=== PATIENT | female | born 1990 | race Caucasian/White ===

== ENCOUNTER 2023-07-23 12:30 | Outpatient (CLI) | payer BC, SELFPAY | END 2023-07-23 12:31 | disposition home or self-care (01) | PROVIDERS: PCP Physician Assistant; Visit Provider Obstetrics & Gynecology | DX: O20.9 Hemorrhage in early pregnancy, unspecified (principal) | CPT/HCPCS: 84702; 86850; 86900; 86901 ==

== ENCOUNTER 2023-07-25 11:39 | Outpatient (CLI) | payer BC, SELFPAY ==
[2023-07-25 12:37] LABS: HCG Quantitative* 73.34 mIU/mL
== END 2023-07-25 11:40 | disposition home or self-care (01) ==
LOC: LAB 11:40
PROVIDERS: PCP Physician Assistant; Visit Provider Obstetrics & Gynecology
DX: O20.9 Hemorrhage in early pregnancy, unspecified (principal)
CPT/HCPCS: 36415; 84702

== ENCOUNTER 2023-07-31 15:50 | Outpatient (CLI) | payer BC, SELFPAY | END 2023-07-31 15:51 | disposition home or self-care (01) | LOC: NFLDREF 08-03 10:17 | PROVIDERS: PCP Physician Assistant; Referring Provider Physician Assistant; Visit Provider Obstetrics & Gynecology | DX: O03.9 Complete or unspecified spontaneous abortion without complication (principal) | CPT/HCPCS: 84702 ==

== ENCOUNTER 2024-06-23 12:00 | Outpatient (CLI) | payer BC, SELFPAY ==
--- NOTE | 2024-06-23 12:15 | CRLHL7_ITS ---
For Patients: As a result of the Cures Act, medical imaging exams and procedure reports are released immediately into your electronic medical record. You may view this report before your referring provider. If you have questions, please contact your health care provider. INDICATION: First trimester scan, establish dates. COMPARISON: None. TECHNIQUE: Real-time gallagher-scale imaging of the pelvis was performed. FINDINGS: Sonographic imaging demonstrates a single living intrauterine gestation. The embryo demonstrates a regular cardiac rate measuring 167 beats per minute. The embryo`s crown-rump length measurement of 1.6 cm corresponds to a gestational age of 8 weeks 0 days with a sonographic due date of 02/02/2025. There is a normal-appearing yolk sac. There are no gross abnormalities noted within the embryo at this early state of development. The gestational sac has a normal appearance. There is a 2.3 x 1.0 x 1.8 cm perigestational hemorrhage. The amount of fluid within the sac appears appropriate for gestational age. The cervix is closed. The myometrium appears normal. The ovaries are of normal size. Corpus luteal cyst left ovary. There are no suspicious fluid collections noted in the cul-de-sac. IMPRESSION: Single living intrauterine with sonographic gestational age 8 weeks 0 days and a sonographic due date 02/02/2025. Right inferior subchorionic hemorrhage measures 2.3 x 1.0 x 1.8 cm. Dictated by Rg Saldivar MD @ 06/23/2024 4:15:19 PM (Electronically Signed)
== END 2024-06-23 12:01 | disposition home or self-care (01) ==
PROVIDERS: Visit Provider Physician Assistant
DX: Z34.91 Encounter for supervision of normal pregnancy, unspecified, first trimester (principal); O20.9 Hemorrhage in early pregnancy, unspecified; Z3A.08 8 weeks gestation of pregnancy
CPT/HCPCS: 76817; 86592; 86703; 86704; 86706; 86762; 86787; 86803; 86850; 86900; 86901; 87086; 87340; 87491; 87591; 87624; 88141; 88142

== ENCOUNTER 2024-09-13 09:47 | Outpatient (CLI) | payer BC, SELFPAY ==
--- NOTE | 2024-09-13 10:00 | CRLHL7_ITS ---
For Patients: As a result of the Century Cures Act, medical imaging exams and procedure reports are released immediately into your electronic medical record. You may view this report before your referring provider. If you have questions, please contact your health care provider. INDICATION: Evaluate anatomy. COMPARISON: 06/23/2024 TECHNIQUE: Real time gallagher scale imaging of the fetus was performed as well as color Doppler analysis of the umbilical vessels. FINDINGS: Sonographic imaging demonstrates a single living intrauterine gestation. Fetus demonstrates a regular cardiac rate of 149 beats per minute. Fetus has a variable position. The placenta lies anteriorly without evidence of placenta previa. Edge of the placenta is located 3.1 cm from the internal cervical os. Amniotic fluid volume appears normal. Single deepest vertical pocket: 4.3 cm. The cervix is closed and measures 6.0 cm in length. The composite ultrasound gestational age is calculated at 19 weeks 5 days with an estimated sonographic due date of 02/02/2025. The estimated weight is 315 grams which lies at the 17th %. The following biometric measurements were obtained: Biparietal diameter: 4.5 cm/19 weeks 4 days 18th% Head circumference: 16.8 cm/19 weeks 3 days 8th% Abdominal circumference: 14.7 cm/20 weeks 0 days 29th% Femur length: 3.1 cm/19 weeks 5 days 20th% The HC/AC ratio measures: 1.14 range (1.08-1.26) On anatomic survey, there is a normal appearance of the cerebral ventricles, cavum septi pellucidi, cisterna magna and cerebellum. The profile appears normal. Incomplete visualization of the nose and the lips. The cervical, thoracic and lumbar spine are well visualized and appear normal. There is incomplete visualization of the four-chamber heart and outflow tracts. The diaphragm and stomach appear normal. The kidneys and bladder also appear normal. There is a normal three-vessel cord and cord insertion site. The four extremities appear normal. IMPRESSION: Concordance of clinical and sonographic dating. Incomplete visualization of the heart due to position. Also incomplete visualization of the nose and lips. Remainder of the anatomic survey normal. Short-term follow-up recommended. Dictated by Rg Saldivar MD @ 09/13/2024 3:23:19 PM (Electronically Signed)
== END 2024-09-13 09:48 | disposition home or self-care (01) ==
LOC: US 09:48
PROVIDERS: Visit Provider Obstetrics & Gynecology
DX: Z34.92 Encounter for supervision of normal pregnancy, unspecified, second trimester (principal); Z3A.19 19 weeks gestation of pregnancy
CPT/HCPCS: 76805

== ENCOUNTER 2024-10-10 10:00 | Outpatient (CLI) | payer BC, SELFPAY ==
--- NOTE | 2024-10-10 10:15 | CRLHL7_ITS ---
For Patients: As a result of the Century Cures Act, medical imaging exams and procedure reports are released immediately into your electronic medical record. You may view this report before your referring provider. If you have questions, please contact your health care provider. INDICATION: Follow-up heart, nose and lips COMPARISON: 09/13/2024 TECHNIQUE: Real time gallagher scale imaging of the fetus was performed as well as color Doppler imaging of the heart. FINDINGS: A ventricular septal defect is suspected, confirmed on the LVOT image and Doppler images. Outflow tracts appear otherwise unremarkable. Normal nose and lips. heart rate 142 beats per minute. Vertex position. Placenta anterior. Amniotic fluid 4.9 cm single deepest pocket. IMPRESSION: Concern for VSD. Maternal medicine consult recommended. Dictated by Rg Saldivar MD @ 10/10/2024 11:26:50 AM (Electronically Signed)
== END 2024-10-10 10:01 | disposition home or self-care (01) ==
LOC: US 10:01
PROVIDERS: Visit Provider Obstetrics & Gynecology
DX: O36.8390 Maternal care for abnormalities of the fetal heart rate or rhythm, unspecified trimester, not applicable or unspecified (principal); O35.AXX0 Maternal care for other (suspected) fetal abnormality and damage, fetal facial anomalies, not applicable or unspecified
CPT/HCPCS: 76816

== ENCOUNTER 2024-11-10 15:00 | Outpatient (CLI) | payer BC, SELFPAY | END 2024-11-10 15:01 | disposition home or self-care (01) | LOC: NFLDREF 11-18 11:34 | PROVIDERS: Visit Provider Obstetrics & Gynecology | DX: Z34.93 Encounter for supervision of normal pregnancy, unspecified, third trimester (principal); Z3A.28 28 weeks gestation of pregnancy | CPT/HCPCS: 86592 ==

== ENCOUNTER 2024-11-14 08:40 | Outpatient (CLI) | payer BC, SELFPAY | END 2024-11-14 08:41 | disposition home or self-care (01) | LOC: FRMREF 08:41 | PROVIDERS: Visit Provider Registered Nurse | DX: R73.09 Other abnormal glucose (principal) | CPT/HCPCS: 82951; 82952 ==

== ENCOUNTER 2024-11-25 10:06 | Outpatient (CLI) | payer BC, SELFPAY ==
--- NOTE | 2024-11-25 10:15 | CRLHL7_ITS ---
For Patients: As a result of the Century Cures Act, medical imaging exams and procedure reports are released immediately into your electronic medical record. You may view this report before your referring provider. If you have questions, please contact your health care provider. LIMITED OBSTETRICAL ULTRASOUND FOLLOWUP, 11/25/2024 LMP: 04/23/2024. NORAH by LMP: 01/28/2025. GA: 30 w, 6 d. FETUSES: Single. INDICATION: Growth (EFW 15% on 11/02/2024 w/MFM) TECHNIQUE: Real time gallagher scale imaging of the fetus was performed. Transabdominal. Position: Vertex. Cervix: Visualized. Measurement: 3.7 cm. Placenta/cord: Anterior. Technique: Transabdominal. Amniotic Fluid: 14.3 cm JACQUI. 4.6 cm SDP (N: Greater than 2 x 1 cm). Heart Rate: 147 bpm. BIOMETRY BPD: 7.6 cm. 30 w, 3 d, 25.3 percent. HC: 27.3 cm. 29 w, 5 d, <3 percent. AC: 26.8 cm. 30 w, 6 d, 47.7 percent. FL: 5.7 cm. 30 w, 0 d, 14.4 percent. FL/AC ratio: 21.3 percent. HC/AC ratio: 1.0. EFW: 1575 g. Weight: 3 lbs, 8 oz. Age by this US: 30 weeks 2 days. NORAH by this US: 02/01/2025. Percentile by NORAH: 24.8%. IMPRESSION: 1. Sonographic gestational age 30 weeks 2 days and sonographic due date 02/01/2025. Sonographic age is four days behind the clinical age. 2. Estimated weight 25th percentile. Abdominal circumference 48th percentile. Head circumference less than 3rd percentile. Rg Saldivar M.D. Diagnostic Radiologist [email or web address] DW/Dictated by: Rg Saldivar MD @ 11/26/2024 7:00:00 AM (Electronically Signed)
== END 2024-11-25 10:07 | disposition home or self-care (01) ==
LOC: US 10:06
PROVIDERS: Visit Provider Obstetrics & Gynecology
DX: Z34.93 Encounter for supervision of normal pregnancy, unspecified, third trimester (principal); Z3A.30 30 weeks gestation of pregnancy
CPT/HCPCS: 76816

== ENCOUNTER 2025-01-04 09:42 | Outpatient (CLI) | payer BC, SELFPAY ==
[2025-01-05 13:09] LABS: Strep B DNA Probe Negative (Negative)
[2025-01-05 14:29] LABS: Strep B Susceptibility Needed? No
== END 2025-01-04 09:43 | disposition home or self-care (01) ==
LOC: FRMREF 09:42
PROVIDERS: Visit Provider Obstetrics & Gynecology
DX: Z34.93 Encounter for supervision of normal pregnancy, unspecified, third trimester (principal); Z3A.36 36 weeks gestation of pregnancy
CPT/HCPCS: 87081; 87653

== ENCOUNTER 2025-02-03 06:25 | Inpatient (IN) | payer BC, SELFPAY ==
[2025-02-03] VITALS (102 sets, daily range): BP systolic 76–148; BP diastolic 37–86; PULSE 75–125; RESP 16–18; TEMP 36.6–36.9; O2SAT 94–100; BMI 35.3
[2025-02-03] MEDS: LACTATED RINGERS 1000 ML 1,000 ML 900 ML IV (06:25)
[2025-02-03 06:36] LABS: Basophils Percent Auto 0.1 % (0.0-3.0); Hematocrit 37.2 % (33.0-51.0); Hemoglobin* 12.5 gm/dL (12.0-16.0); Immature Granulocytes Pct Auto 1.8 %; Lymphocytes Percent Auto 16.4 % (20-44); Mean Corpuscular HGB Conc 34 gm/dL (32-36); Mean Corpuscular Hemoglobin 29 pg (26-34); Mean Corpuscular Volume 85 fL (80-100); Monocytes Percent Auto 5.4 % (0.0-11.0); Neutrophils Percent Auto 75.3 % (42.0-72.0); Platelet Count* 182 K/uL (140-440); RDW Coefficient of Variation % 14.4 % (11.5-15.5); Red Blood Count 4.37 m/uL (4.00-5.20); Slide Review Reflex No; White Blood Count* 11.03 K/uL (4.50-11.00)
[2025-02-03] MEDS: ROPIVACAINE 0.2% 100 ml 100 ML 11 MG EPIDURAL (07:20)
[2025-02-03] MEDS: LIDOCAINE 2% (PF) 5 ML VIAL EPIDURAL (07:21)
[2025-02-03] MEDS: PHENYLEPHRINE 100 MCG/ML SYRINGE IVP ×4 (07:28→08:41)
[2025-02-03] MEDS: fentaNYL 100 MCG/2 ML inj EPIDURAL (07:30)
[2025-02-03] MEDS: LACTATED RINGERS 1000 ML 1,000 ML 125 ML IV ×2 (07:33→09:56)
--- NOTE | 2025-02-03 07:35 | P.ANBPRC_ITS ---
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 Marital status: Significant other. Adventist/cultural needs: no. Chemical or radiation exposure: no. Pre- tobacco use: no. Pre- alcohol use: 1-2 per week. Current tobacco use: no. Current alcohol use: no. Recreational drug use: no. Dietary restrictions: no. Blood transfusion acceptable in an emergency: yes. PSYCHOSOCIAL HISTORY: History of depression or currently depressed: Denies. Current or past physical, emotional, or sexual mistreatment: Denies. Problems that will make it hard to make it to appointments: No. What is your current living situation?: I presently have a place to live Problems where you live: mold In the past 12 months, utilities in danger of being shut off: no In past 12 months, lack of transportation kept you from medical appts, meetings, work, or getting things needed for daily living: no In the past 12 mos, have been you worried that your food would run out before you had money to buy more?: never true In the past 12 mos, the food you bought just didn't last and you didn't have money to buy more?: never true Smoking Status: Never smoker How often does anyone, including family, friends and others, physically hurt you : never How often does anyone, including family, friends and others, insult or talk down to you: never How often does anyone, including family, friends and others, threaten you with harm: never How often does anyone, including family, friends and others, scream or curse at you: rarely Health Related Social Needs: Inadequate housing (Z59.1) and Other personal risk factors, not elsewhere classified (Z91.89) Meds Home Medications and Allergies Home Medications ?Medication ?Instructions ?Recorded ?Confirmed ?Type docosahexaenoic acid 200 mg mg PO 06/23/24 02/01/25 History capsule ( DHA) Allergies Allergy/AdvReac Type Severity Reaction Status Date / Time avocado Allergy Intermediate Abdominal Verified 02/03/25 06:17 Pain banana Allergy Intermediate Abdominal Verified 02/03/25 06:17 Pain Results Labs Labs: Laboratory Results - last 24 hr 02/03/25 06:25 WBC 11.03 H RBC 4.37 Hgb 12.5 Hct 37.2 MCV 85 MCH 29 MCHC 34 RDW Coeff of Juan Carlos 14.4 Plt Count 182 Neut % (Auto) 75.3 H Lymph % (Auto) 16.4 L Karnes % (Auto) 5.4 Eos % (Auto) 1.0 Baso % (Auto) 0.1 Neut # (Auto) 8.30 H Lymph # (Auto) 1.80 Karnes # (Auto) 0.60 Eos # (Auto) 0.10 Baso # (Auto) 0.00 Abs Immat Gran (auto) 0.20 Imm/Tot Granulo (auto) 1.8 Vital Signs Vital Signs: Last Vital Signs Temp 97.9 F 02/03/25 06:33 Pulse 105 H 02/03/25 07:35 BP 99/54 L 02/03/25 07:35 Pulse Ox 99 02/03/25 07:34 Weight: 84.776 kg Height: 154.94 cm Anesthesia Procedures Epidural Insertion Patient Location: OB Start Time: 06:50 Stop Time: 07:50 Start Date: 02/03/25 Stop Date: 02/03/25 Reason for Block: procedure for pain Patient Position: sitting Performed By: Margot Carrera Preanesthetic Checklist: IV checked, risks and benefits discussed, surgical consent, monitors and equipment checked, pre-op evaluation, timeout performed and anesthesia consent Prep: chlorhexidine gluconate Monitoring: blood pressure monitoring, continuous pulse oximetry and heart rate Approach: midline Vertebral Space: lumbar (1-5) Epidural Technique: CORBY saline Needle Type: Tuohy needle Injection Technique: continuous catheter (continuous catheter) Needle gauge: 17 Needle Length (cm): 10 cm Needle Insertion Depth (cm): 8 Catheter Gauge: 19 Catheter Type: multi-orifice Catheter at skin depth (cm): 15 Test Dose Result: negative and lidocaine 1.5% with epinephrine 1 to 200,000
[2025-02-03] MEDS: ePHEDrine sulfate 5 MG/ML inj 10 MG IVP ×2 (07:42→08:15)
--- NOTE | 2025-02-03 08:14 | P.LDBA_ITS ---
Subjective History of Present Illness Time Seen by Provider: 08:14 Date Seen: 02/03/25 Narrative: Camila is being admitted to Labor and Delivery for spontaneous onset of labor. Her contractions did are approximately 3:00 a.m. and became much more intense and every 2 minutes by 6:00 a.m. she received an epidural for labor analgesia soon after admission this morning.. She is a 34 year old at 40 and 6/7 weeks gestation. Her full history and physical was dictated by Dr. Shafer on 01/11/2025. Please see this for details. Verbal consent obtained to perform artificial rupture of membranes. The patient and her spouse no concerns or questions. They are very excited about having the baby today. She is comfortable with an epidural and has been progressing quickly through labor. Specific Issues/Plans Partner: Tyrone. Baby: Girl! H&P: by [facility] on 01/11/25. #Elevated 1hr GTT 3 hour 10/01 elevated: no GDM #Imaging concerns for a possible VSD, MFM evaluation confirmed normal anatomy. [place] low risk, girl! Imaging: * 09/13/24: FAS normal, except suboptimal views of heart, nose/lips due to position and activity. EFW 17%. Anterior placenta. * 10/11/2024 MFM: EFW 21%, AC 43%, MVP 6.4 cm, structures not well visualized: Aortic arch view, ductal arch view. Follow-up ultrasound scheduled with [facility] in three weeks. * 11/02/24 MFM: EFW 15%, AC 32%, MVP 8.3 cm, JACQUI 22.4 cm, normal anatomy. Rec: repeat growth US in [place] with primary clinic in 4 weeks. Order entered. * Follow-up ultrasound: 11/25/2024. EFW 3 lb 8 oz (25%), BPD 25%, HC <3%, AC 48%, FL 14%, SDP 6.3 cm, vertex. Vaccinations: COVID: Declines Flu: 06/23/2024 Tdap: 11/25/2024 GBS: Negative. 32 week mental health: 12/09/24. PHQ-9: 3. KLAUS-7: 4. Last pap: 06/23/2024 WNL, HPV(-) OB - Problem Based A/P Additional Plan (1) Spontaneous onset of labor: Status: Acute Plan 1. Admit to the center. 2. Patient has an epidural for labor analgesia. 3. GBS: Negative. 4. Blood type: A positive. 5. Expect vaginal delivery. OB Exam Physical Exam Vital signs: Temp Pulse BP Pulse Ox 97.9 F 94 90/51 L 99 02/03/25 06:33 02/03/25 08:13 02/03/25 08:13 02/03/25 08:09 Narrative: GENERAL APPEARANCE: Pleasant, , well-groomed woman in no acute distress. VITAL SIGNS: as noted in nursing notes HEAD: Normocephalic, atraumatic. THYROID: no masses, nodularity, tenderness or enlargement. LUNGS: Clear to auscultation bilaterally without wheezes, rales or rhonchi. HEART: Regular rate and rhythm with normal S1 and S2. No gallop, rub or murmur. ABDOMEN: Gravid. Soft, nontender, nondistended, with normal bowels sounds throughout. EFM: Baseline 140 bpm. Variability: Moderate. Accelerations: Present. Decelerations: Intermittent early decelerations AROM. Reactive. Category 2 TOCO: Q2-3 minutes. PRESENTATION: Vertex by Kristofer's maneuvers. SVE: 8 cm/ 100 %/ 0/soft/anterior. AROM: Clear fluid EXTREMITIES: No cyanosis, clubbing, or edema. No varicosities. NEUROLOGIC: Normal gait and balance. Normal deep tendon reflexes at bilateral patella 2+/2, equal without clonus. PSYCHIATRIC: alert and oriented x3. Normal speech pattern, eye contact and affect. SKIN: Warm, dry, and well perfused. Good turgor. No lesions, nodules or rashes.
[2025-02-03] MEDS: LACTATED RINGERS 1000 ML 1,000 ML 925 ML IV (08:45)
[2025-02-03] MEDS: ONDANSETRON 2 MG/ML inj 4 MG IV (11:39)
--- NOTE | 2025-02-03 13:54 | PM.OBPNL ---
Subjective Time Seen by Provider: 13:54 Date Seen: 02/03/25 Narrative: Subjective: Feeling pressure with contractions but not uncomfortable. Been pushing for almost 3 hours in multiple positions. Nursing reports no descent of the vertex. Not on Pitocin. Vital signs: Per electronic medical record. EFM: Baseline 140 ppm, positive accelerations, sporadic variable decelerations with contractions, moderate variability, reactive. Category 2. Becenti: Contractions every 2 minutes. SVE: Completely cm/100 %/0 to +1 with significant caput. Cranial sutures are not palpable secondary to caput Assessment: 34-year-old 1 para 0 at 40 weeks 6 days gestation arrest of descent Plan: 1. Due to arrest of descent and suspected OT position a primary low-transverse was recommended. 2. Consent form reviewed and signed for primary low-transverse Objective Vital Signs: Last Vital Signs Temp 98.1 F 02/03/25 12:55 Pulse 101 H 02/03/25 13:39 BP 118/69 02/03/25 13:39 Pulse Ox 94 02/03/25 09:14
[2025-02-03] MEDS: AZITHROMYCIN 500 MG in 0.9 % SODIUM CHLORIDE 250 ml 250 ML 255 MG IVPB (14:04)
--- NOTE | 2025-02-03 14:07 | PM.OBPRCCS ---
OB Delivery Proc Additional Procedures Tubal Ligation at the time of : No Procedure Date of procedure: 02/03/25 Pre-op diagnosis: Arrest of descent Post-op diagnosis: same Procedure Done: Global Will [facility] bill your pro fee for this procedure?: Yes Blood Loss Measurement Type: QBL (1521 mL) IV fluids (mL): 1,400 Urine Output (mL): 300 Surgeon: Elizabeth Billingsley MD Commercial Designer: Not applicable Anesthesia Type: Epidural and TAP Block Procedure Description: Preoperative diagnosis: 34-year-old 2 para 0010 at 40 and 6/7 weeks, arrest of descent Postoperative diagnosis: Same, ROT position, hemorrhage Procedure: Primary low-transverse section Anesthesia: Epidural, TAPS Block Surgeon: Elizabeth Shafer MD Commercial Designer: Not applicable Quantitative blood loss: 1521 mL IV Fluid: 1400 mL Urine output: 300 mL, clear urine at the end of the procedure Specimen: none Drain(s): Reyes to gravity Findings: A live female infant was delivered from the ROT position at 3:03 p.m.. Apgars were 9 at 1 min and 9 at 5 min, respectively. Infant weight: 8 lb 6 oz. Nuchal cord(s): No. The placenta was delivered spontaneously and complete at 3:05 p.m.. Amniotic fluid: Clear. Normal uterus, fallopian tubes and ovaries were noted. Other findings: Extension of the left uterine apex into the uterine blood vessels. Procedure: Camila was taken to the OR where epidural anesthetic was found be adequate. A Reyes catheter was in place on arrival to the operating room. The patient was then placed in the dorsal supine position with a leftward tilt. She was then prepped and draped in a normal sterile manner. A Pfannenstiel skin incision was made and carried through sharply to the underlying layer of fascia. Fascia was incised in the midline and this incision carried laterally with Sheehan scissors. The superior aspect of fascial incision was grasped with Julia clamps, tented up, and the rectus muscles dissected off with a combination of blunt and sharp dissection. The inferior aspect of the fascial incision was then tented up with Julia clamps and dissected off the underlying rectus muscles. There were 3 veins in the midline of the fascia and rectus muscles that did not respond to bipolar cautery both 3 figure of 8 sutures using 3-0 Vicryl were placed to obtain hemostasis. The rectus muscles were in the midline. The peritoneum was entered bluntly. This opening was extended bluntly. An Willie-O self-retaining retractor was placed. A bladder flap was not created. Uterus was incised in a low transverse manner in the midline. This incision carried laterally with blunt pressure on the inferior and superior aspects of the uterine incision. The amniotic sac was ruptured. The 's head and body was delivered atraumatically. The 's vertex was somewhat impacted in the pelvis but was able to lift the 's head to the incision after approximately 1 minute. The was shown to the patient and her support person and then handed to waiting pediatric and nursing staff. The cord was clamped and cut after a 30 second delay. The placenta was delivered spontaneously. The uterus was cleared of clots and debris. The uterine incision was re-approximated with the uterus in vivo. The 1st layer using 0-Vicryl in a running, locked manner. Prior to completing the 1st layer there was noted to be an extension of the left uterine apex that extended into the uterine vessels with arterial bleeding. Three sutures of 0 Vicryl in a [id number] manner were placed and excellent hemostasis was noted. The 1st uterine layer was then completed with the 0-Vicryl suture in a running manner. The 2nd layer using 0-Monocryl in a running, vertical, imbricating layer. Additional sutures needed for hemostasis: Yes: 3 figure of 8 sutures using 2-0 chromic. Yun was then applied to the uterine incision. Excellent hemostasis was verified. The Willie retractor was removed. The rectus muscles were not reapproximated. The rectus muscles were then closely inspected to verify hemostasis. Hemostasis was obtained with bipolar cautery. The fascia was then re-approximated using 0-Maxon loop in a running manner. The subcutaneous tissue was then irrigated with saline and hemostasis obtained with bipolar cautery. The subcutaneous tissue was re-approximated using 3-0 plain gut in a running manner. The skin was reapproximated using 4-0 Monocryl in a running subcuticular manner. Steri-Strips and a pressure dressing were applied. The patient tolerated this procedure well. Sponge, lap and instrument counts were correct x2 active to the procedure. Patient was taken to the recovery area in stable condition. The patient received 2 g of IV Ancef and 500 mg IV azithromycin prior to skin incision. Pathology: none sent Surgery Debrief Performed: Yes Condition: stable Disposition: floor
--- NOTE | 2025-02-03 16:15 | SUR.OPER ---
Pressure dressing applied, steri strips, 4X4, abd pads and tape.
--- NOTE | 2025-02-03 16:22 | P.ANES_ITS ---
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
--- NOTE | 2025-02-03 16:22 | W.ANESCHARGE ---
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
--- NOTE | 2025-02-03 16:23 | P.NB_ITS ---
Nerve Block Nerve Block Time Seen by Provider: 16:05 Date Seen: 02/03/25 Type of block requested by surgeon for post-operative analgesia: TAP Side: bilateral Time out performed: Yes Verification of patient name: Yes Verification of date of : Yes Name of person performing procedure: Rolando Brannon Continuous monitoring Was continuous monitoring of O2 sat, B/P, acrobatic rigger, recorded every 15 minutes?: Yes Procedure Ultrasound guided. Images saved: Yes Medications given in 5ml increments after negative aspiration: Marcaine %: 0.25 mL: 30 Needle gauge: 20 and Exparel mL: 10 Needle gauge: 20 Patient tolerated procedure well: Yes Block Charges Block Charge (with Pro Fee): TAP Unilateral Use of Ultrasound Machine for Block: Yes- US Guidance/pain block
[2025-02-03] MEDS: ACETAMINOPHEN 500 MG TABLET 1000 MG PO (16:41)
[2025-02-03] MEDS: KETOROLAC 30 MG/ML inj IVP (21:54)
[2025-02-03] MEDS: DOCUSATE SODIUM 100 MG CAPSULE PO (21:55)
[2025-02-04] VITALS (25 sets, daily range): BP systolic 105–127; BP diastolic 65–82; PULSE 91–116; RESP 16–20; TEMP 36.6–36.9; O2SAT 96–98
[2025-02-04] MEDS: ACETAMINOPHEN 500 MG TABLET 1000 MG PO ×2 (01:10→20:26)
[2025-02-04] MEDS: KETOROLAC 30 MG/ML inj IVP ×4 (03:37→22:12)
[2025-02-04 04:39] LABS: Basophils Percent Auto 0.2 % (0.0-3.0); Eosinophils Percent Auto 0.3 % (0.0-7.0); Hematocrit 29.2 % (33.0-51.0); Hemoglobin* 9.6 gm/dL (12.0-16.0); Immature Granulocytes Pct Auto 0.5 %; Lymphocytes Percent Auto 12.6 % (20-44); Mean Corpuscular HGB Conc 33 gm/dL (32-36); Mean Corpuscular Hemoglobin 28 pg (26-34); Mean Corpuscular Volume 86 fL (80-100); Monocytes Percent Auto 5.5 % (0.0-11.0); Neutrophils Percent Auto 80.9 % (42.0-72.0); Platelet Count* 150 K/uL (140-440); RDW Coefficient of Variation % 14.5 % (11.5-15.5); White Blood Count* 13.02 K/uL (4.50-11.00)
[2025-02-04 04:42] LABS: Slide Review Reflex No
--- NOTE | 2025-02-04 04:46 | CRLHL7_ITS ---
For Patients: As a result of the Century Cures Act, medical imaging exams and procedure reports are released immediately into your electronic medical record. You may view this report before your referring provider. If you have questions, please contact your health care provider. INDICATION: Right upper quadrant pain, just had a . COMPARISON: None. TECHNIQUE: CT of the abdomen and pelvis with intravenous contrast. Multiplanar axial, coronal, and sagittal reformats were reconstructed. Contrast: 91 mL Isovue 370. FINDINGS: Lung bases: Mild basilar atelectasis. Liver: Liver size is normal. Normal homogeneous hepatic enhancement. Normal patent liver vasculature. Gallbladder and bile ducts: Gallbladder is distended. No gallbladder wall thickening or pericholecystic edema. No bile duct dilation. Pancreas: Normal. Spleen: Normal. Adrenal glands: Normal. Kidneys: Normal parenchyma. No cyst or solid mass. No calculi. No urinary tract dilation. Urinary bladder: Decompressed with a Reyes catheter. Pelvis: Appearance of the uterus consistent with a recent section. Small amount of gas and fluid within the endometrial cavity. The section site in the anterior inferior uterus is about as expected without dehiscence or hematoma. Expected recent appearance of the myometrium with prominent myometrial vascularity in general enlargement of the uterus. Small amount of fluid in the endocervical and endovaginal canal. Vessels: Expected recent appearance of both ovarian veins. No ovarian vein thrombosis. No pelvic DVT. Bowel: No dilated or inflamed bowel. Normal appendix. Moderate right-sided stool burden. Lymph nodes: No adenopathy. Peritoneum: No ascites. Trace free air consistent with recent operation. Abdominal wall: Postoperative lower abdominal incision. No dehiscence or discrete hematoma or other collection. Abdominal wall subcutaneous emphysema is consistent with a recent operation. Mild diastasis. Bones: No fractures. No focal worrisome bone lesions. IMPRESSION: Expected appearance of the abdomen and pelvis after a recent section. No acute appearing findings. Please note that all CT scans at this facility use dose modulation, iterative reconstruction, and/or weight-based dosing when appropriate to reduce radiation dose to as low as reasonably achievable. Dictated by Kassandra Hernandez MD @ 02/04/2025 5:16:47 AM (Electronically Signed)
[2025-02-04] MEDS: DOCUSATE SODIUM 100 MG CAPSULE PO ×2 (09:16→20:26)
[2025-02-04] MEDS: polyethylene glycoL 3350 17 GM PACK PO (09:16)
--- NOTE | 2025-02-04 09:20 | P.OBPN_ITS ---
OB - PN:Subj Subjective Date Seen: 02/04/25 Narrative: Camila is a 34yo seen on POD1 from primary C/S for arrest of descent, complicated by PPH with QBL of 1521cc. She presented for spontaneous onset of labor at 40w6d, complicated only by elevated 1 hour glucola but normal 3 hour GTT. Overnight, had significant upper abdominal pain (R>L) and elevated fundal height that prompted labs and a CT abdomen and pelvis. Labs demonstrated hemoglobin of 9.6 (from 12.5) which was felt to be appropriate given her QBL. CT of the abdomen and pelvis was within normal limits given her acute postoperative state, significant stool burden. Camila notes her pain does persist but is improved. At present, she is lying in bed and has no pain. Utilizing a regimen of NSAIDs, Tylenol and oxycodone as needed for pain control. Patient is tolerating p.o. intake without nausea vomiting. She has stood at the edge of the bed and transferred to wheelchair, denies dizziness or lightheadedness. She has not otherwise ambulated yet. Reyes catheter remains in Situ. She thinks she may have passed some gas last night, otherwise just feels gaseous movement today but is not passing flatus consistently. No bowel movement. Lochia described as moderate. OB - PN: Obj Exam Physical Exam: Vital signs: Temp Pulse Resp BP Pulse Ox O2 Del Method 97.9 F 91 16 114/71 96 Room Air 02/04/25 05:10 02/04/25 05:10 02/04/25 06:25 02/04/25 05:10 02/04/25 05:10 02/04/25 05:10 Narrative: Vital signs reviewed and are within normal limits. Patient had some tachycardia in the early hours of this morning, now resolved. General: Alert and oriented, no acute distress Psych: Appropriate mood and affect Abdomen: Soft, mild gaseous distension noted in the upper abdomen. Tenderness to palpation of the uterine fundus, which is about 3 cm above the umbilicus and somewhat shifted to the right. Mild tenderness is noted elsewhere consistent with postoperative state, no rebound or guarding. Incision is covered with dressing, clean/dry. No peripheral ecchymosis or erythema seen. Extremities: SCDs in place. Trace pedal edema. Calves are non tender, swollen or erythematous. OB - PN: Obj Data Labs Labs: Laboratory Results - last 24 hr 02/03/25 02/04/25 06:25 04:23 WBC 13.02 H RBC 3.40 L Hgb 9.6 L Hct 29.2 L MCV 86 MCH 28 MCHC 33 RDW Coeff of Juan Carlos 14.5 Plt Count 150 Neut % (Auto) 80.9 H Lymph % (Auto) 12.6 L Pepin % (Auto) 5.5 Eos % (Auto) 0.3 Baso % (Auto) 0.2 Neut # (Auto) 10.50 H Lymph # (Auto) 1.60 Pepin # (Auto) 0.70 Eos # (Auto) 0.00 Baso # (Auto) 0.00 Abs Immat Gran (auto) 0.10 Imm/Tot Granulo (auto) 0.5 Blood Type A Positive Antibody Screen NEGATIVE OB - PN: A/P Delivery Assessment and Plan (1) Spontaneous onset of labor: Status: Acute Plan Camila is a 34-year-old seen on postop day 1 from a primary performed for arrest of descent. Delivery was complicated by hemorrhage secondary to tissue trauma/extension, QBL of 1.5 L. Postoperative course has been complicated by upper abdominal pain (R>L), elevated fundal height, tachycardia overnight which prompted early labs and a CT of the abdomen and pelvis. Hemoglobin was noted to be 9.[address] 12.[address] of the abdomen and pelvis was reassuring from a postoperative status, stool burden noted. Patient has been progressing slowly through postoperative milestones. She notes her pain is well controlled at rest, exacerbated by movement. She is on a regimen of NSAIDs, Tylenol and oxycodone as needed. She has stood at the edge of the bed and transferred to a wheelchair, denies dizziness, lightheadedness, chest pain or dyspnea. Has not ambulated independently yet, Reyes catheter lydia ins in Situ. Urine output of 1450mL in the last 8 hours. Patient thinks she did pass a small volume of flatus last night, assisting neatly yet. No bowel movement. Tolerating PO intake. Abdominal exam is significant for gaseous distention in the upper quadrants and some mild tenderness to palpation. Her uterine fundus is at 3 above umbilicus and shifted off to the right somewhat, tender to palpation. No rebound or guarding throughout. Incision is covered with dressing, which appears clean/dry. Recommend we continue to work on postoperative milestones progression today. Specifically, continue regimen of pain control. Recommend trials of ambulation, goal to remove her Reyes catheter this morning. She is on a bowel regimen scheduled given significant stool burden on CT. Continue to monitor lochia, described as moderate with no nursing concerns reported. If patient has difficulty meeting postoperative milestones through the day or change in vital signs (hypotension, tachycardia, low urine output), plan to repeat labs. Recommend routine cares and lactating support. Disposition: Inpatient overnight Plan day: 1 Plan: routine care
[2025-02-04 18:57] LABS: Rapid Plasma Reagin (RPR) Non Reactive (Non Reactive)
[2025-02-04] MEDS: FERROUS SULFATE 325 MG TABLET PO (20:26)
[2025-02-04] MEDS: SIMETHICONE 80 MG TAB.CHEW PO (20:27)
[2025-02-05] MEDS: ACETAMINOPHEN 500 MG TABLET 1000 MG PO ×3 (04:35→17:33)
[2025-02-05 04:48] VITALS: BP 113/74; PULSE 98; RESP 16; TEMP 36.6; O2SAT 97
[2025-02-05] MEDS: IBUPROFEN 600 MG TABLET PO ×3 (05:37→18:52)
[2025-02-05] MEDS: FERROUS SULFATE 325 MG TABLET PO (08:20)
[2025-02-05] MEDS: OXYCODONE 5 MG TABLET PO ×2 (08:20→14:53)
[2025-02-05] MEDS: DOCUSATE SODIUM 100 MG CAPSULE PO ×2 (08:20→20:44)
[2025-02-05] MEDS: polyethylene glycoL 3350 17 GM PACK PO (08:20)
--- NOTE | 2025-02-05 08:32 | PM.OBPNVD1 ---
OB - PN:Subj Subjective Time Seen by Provider: 08:33 Date Seen: 02/05/25 Narrative: Camila is a 34yo seen on POD2 from primary C/S for arrest of descent, complicated by PPH with QBL of 1521cc. She presented for spontaneous onset of labor at 40w6d, complicated only by elevated 1 hour glucola but normal 3 hour GTT. On the evening of POD0-1, she had significant upper abdominal pain (R>L) and elevated fundal height that prompted labs and a CT abdomen and pelvis. Labs demonstrated hemoglobin of 9.6 (from 12.5) which was felt to be appropriate given her QBL. CT of the abdomen and pelvis was within normal limits given her acute postoperative state, significant stool burden. Patient notes her upper abdominal pain has improved through time. She continues to have significant lower quadrant cramping/soreness, with some tenderness when she or nurses press on the uterine fundus. Pain is managed by ibuprofen and tylenol, taking her first dose of oxycodone this morning to assist with pain control. Tolerating PO intake without nausea/vomiting. Has been up to ambulate on the unit several times yesterday, denies dizziness/lightheadedness, chest pain or dyspnea. No fevers/chills. Voiding spontaneously, passing flatus but no BM yet. Lochia is decreasing with time. Camila notes it was a hard night due with baby being fussy and difficulty with latch. She would benefit from another night in the hospital to continue to progress through post-op milestones, pain control and breast feeding support. OB - PN: Obj Exam Physical Exam: Vital signs: Temp Pulse Resp BP Pulse Ox O2 Del Method 97.8 F 98 16 113/74 97 Room Air 02/05/25 04:48 02/05/25 04:48 02/05/25 04:48 02/05/25 04:48 02/05/25 04:48 02/05/25 04:48 Narrative: Vital signs reviewed and are within normal limits. Patient had intermittent tachycardia (consistent with her pre-delivery baseline) - now resolved. General: Alert and oriented, no acute distress Psych: Appropriate mood and affect Abdomen: Soft, mild gaseous distension noted in the upper abdomen but improved from previous exam. Tenderness to palpation of the uterine fundus, which is about 3 cm above the umbilicus and somewhat shifted to the right. Mild tenderness is noted elsewhere consistent with postoperative state, no rebound or guarding. Incision is well approximated, no separation, erythema or drainage noted. Extremities: Trace pedal edema. Calves are non tender, swollen or erythematous. OB - PN: Obj Data Labs Labs: Laboratory Results - last 24 hr 02/03/25 06:25 RPR Screen Non Reactive OB - PN: A/P Delivery Assessment and Plan (1) Spontaneous onset of labor: Status: Acute Plan Camila is a 34-year-old seen on postop day 2 from a primary performed for arrest of descent. Delivery was complicated by hemorrhage secondary to tissue trauma/extension, QBL of 1.5 L. Postoperative course has been complicated by upper abdominal pain (R>L), elevated fundal height, tachycardia overnight which prompted early labs and a CT of the abdomen and pelvis. Hemoglobin was noted to be 9.6 from 12.[address] CT of the abdomen and pelvis was reassuring from a postoperative status, stool burden noted. Patient has made good progress on post-op milestones in the last 24 hours. She is ambulating without dizziness/lightheadedness, voiding spontaneously and passing gas. Her pain has improved, through she does still have fundal tenderness. She is maintained on ibuprofen and tylenol, taking her first dose of oxycodone this morning to see if this can improve her pain. Planning abdominal binder to encourage ambulation. Lochia is appropriate. No chest pain, dyspnea, nausea/vomiting, fevers/chills. Adequate UOP. Abdominal exam is similar to yesterday, slight improvement in gaseous distension noted. No signs/symptoms to suggest endometritis aside from tenderness to palpation of the uterus. Camila is baby girl and did supplement with formula x1 overnight. She would benefit from another night in the hospital to help with pain control, ambulation and support. Recommend routine cares and lactating support. Anticipate dismissal to home tomorrow. Plan day: 2 Plan: routine care
[2025-02-05 08:38] VITALS: BP 112/75; PULSE 102; RESP 16; TEMP 36.6; O2SAT 96
[2025-02-05 17:18] VITALS: BP 113/74; PULSE 104; RESP 16; TEMP 36.6; O2SAT 97
[2025-02-05 20:47] VITALS: BP 121/73; PULSE 106; RESP 16; TEMP 36.5; O2SAT 97
[2025-02-06] MEDS: ACETAMINOPHEN 500 MG TABLET 1000 MG PO ×2 (00:24→09:17)
[2025-02-06] MEDS: IBUPROFEN 600 MG TABLET PO ×2 (05:12→12:18)
[2025-02-06 06:11] VITALS: BP 108/72; PULSE 86; RESP 16; TEMP 36.8; O2SAT 96
--- NOTE | 2025-02-06 07:09 | PM.OBDSVD1 ---
DS: Providers Provider Date Seen: 02/06/25 Date of admission: 02/03/25 06:25 Primary care physician: Not a Local Provider Admitting Clinician: Ai Villa MD Attending Physician on discharge: Kassandra Jaramillo CNM DS: Diagnosis Discharge Diagnosis (1) Status post primary low transverse section: Status: Acute Problem details: Girl, ROT, apgars 9/9, 8#6oz (2) care and examination immediately after delivery: Status: Acute (3) Lactating mother: Status: Acute (4) hemorrhage, delivered: Status: Acute Problem details: QBL 1521mL (5) Anemia due to acute blood loss: Status: Acute Exam Narrative: Exam Narrative: GENERAL APPEARANCE:? normal affect, alert, no distress MOOD:? appropriate CHEST:? clear to auscultation HEART:? regular rate and rhythm ABDOMEN:? soft, non-tender the uterine fundus is 1 above Umbilicus, Midline and is appropriate for the stage of recovery. EXTREMITIES:? normal and no edema INCISION: Healing well, no surrounding erythema, abnormal induration or discharge Const: Vital Signs, click to edit/add: Vital Signs - 24 hr 02/05/25 08:38 02/05/25 17:18 02/05/25 20:47 Temperature 97.8 F 97.9 F 97.7 F Pulse Rate [Pulse Oximeter] 102 H 104 H 106 H Respiratory Rate 16 16 16 Blood Pressure [Le ft Arm] 112/75 113/74 121/73 Pulse Oximetry 96 97 97 Oxygen Delivery Me thod Room Air Room Air Room Air 02/06/25 06:11 Temperature 98.3 F Pulse Rate [Pulse Oximeter] 86 Respiratory Rate 16 Blood Pressure [Le ft Arm] 108/72 Pulse Oximetry 96 Oxygen Delivery Me thod Room Air Documenting provider has reviewed patient's vital signs: yes OB - DS: Summary Hospital Course Hospital Course: Camila is a 34 y.o. G 2 P 1011 who was admitted to [facility] for spontaneous onset of labor. ?She had a primary section that was complicated by PPH of 1520. The patient feels well. ?The pain is well controlled with current medications. ?She has no new complaints. ?She is breast feeding and reports things are going well. the patient has done well.? Vitals have been stable.? She has remained afebrile.? Has a good appetite, is tolerating a general diet. ?She is voiding without difficulty.? She is passing gas and has not had a bowel movement.? She is ambulating and denies any dizziness.? Has small amount of rubra lochia. A CT was performed over the weekend due to abdominal distention and concern about uterine position. It was found that patient had extensive amount of feces in her bowels. She was started on a bowel program and reports she feels improved today. She is undecided on prevention. Problems: anemia Discharge home with baby.? Follow up in 2 weeks and 6 weeks.? , may see if needed? Anemia, Hgb 9.6. Iron supplement ordered orally every other day? For pain control of perineum, breast and pelvic pain, take 600 mg Ibuprofen every 6 hours as needed by mouth or 1000 mg acetaminophen (Tylenol) every 6 hours by mouth as needed. You can alternate these so you are taking something every 3 hours as needed. A heating pad can also be used for your abdomen or breasts. You may also take docusate sodium up to twice daily to soften your stools and help to prevent constipation. You may wean off of it when your stools return to normal.? Peripartum Data Infant delivery method: Primary C/S; Labored Laceration description: None Procedures: Procedures Operation Date: 02/03/25 14:30 Actual Procedure Side Surgeon p Section Elizabeth Shafer MD complications: none Gender: Female Discharge Plan: Home Status at Discharge Functional status at discharge: independent ambulation Overall status at discharge: patient is progressing back to baseline Time Spent with Patient Time attestation: Total time spent providing and/or coordinating discharge services: Time spent: Less than 30 minutes Discharge Plan Discharge Disposition: Home, Self-Care Date of Admission: 02/03/25 06:25 Attending Provider on Discharge: Kassandra Jaramillo Primary Care Provider: Provider,Not a Local Condition: Stable Anticipated Discharge Date/Time: 02/06/25 12:00 Discharge Medications: New docusate sodium 100 mg Capsule 100 mg PO BID Qty: 90 0RF ferrous sulfate 325 mg (65 mg iron) Tablet 325 mg PO Q48H Qty: 60 0RF polyethylene glycol 3350 [Miralax] 17 gram Powder In Packet 17 g PO DAILY Qty: 14 0RF ibuprofen 600 mg Tablet 600 mg PO Q6H PRN (Reason: Pain) Qty: 60 0RF oxycodone 5 mg Tablet 5 - 10 mg PO Q4H PRN (Reason: Pain) Qty: 15 0RF acetaminophen 500 mg Tablet 1,000 mg PO Q6H PRN (Reason: pain/fever) Qty: 0 0RF Continued DHA 200 mg capsule 200 mg PO DAILY Discharge Orders: Discharge Order (Routine); Ordered 02/06/25 Ordered By: Kassandra Jaramillo Patient Education: OB Over the Counter Medication Information, OB /Breast Feeding Additional Instructions: Discharge instructions were reviewed with the patient including signs and symptoms of infection and home going medications Lifting Restrictions: 20 pounds for 6 weeks No not submerge incision under water X 2 weeks? Nothing vaginally for 6 weeks: no tampons or intercourse Do not drive while taking narcotic pain medication(s) Off Work or School for 8 weeks 2-week visit: incision check, discuss feeding concerns, review control options and screen for anxiety/depression. 6-week visit for an annual exam. consultation services are available to all mothers and babies for the first year after delivery.? To make an appointment, please call [phone]. Activity Level: Activity as Tolerated Discharge Diet: Regular Follow Up Appointments: [facility] [Provider Group] Forms: [employer] Info Instructions
[2025-02-06] MEDS: OXYCODONE 5 MG TABLET PO ×2 (07:49→14:58)
[2025-02-06 07:52] VITALS: BP 120/77; PULSE 90; RESP 16; TEMP 36.4; O2SAT 98
[2025-02-06] MEDS: polyethylene glycoL 3350 17 GM PACK PO (09:17)
[2025-02-06] MEDS: DOCUSATE SODIUM 100 MG CAPSULE PO (09:17)
[2025-02-06 16:16] VITALS: BP 128/77; PULSE 110; RESP 16; TEMP 36.6; O2SAT 96
== END 2025-02-06 16:52 | disposition home or self-care (01) | DRG 540 ==
LOC: OB OUT 06:45 → OB 07:26
PROVIDERS: Obstetrics & Gynecology; Admitting Provider Obstetrics & Gynecology; Visit Provider Obstetrics & Gynecology
PROC: 10D00Z1 Extraction of Products of Conception, Low, Open Approach (ICD-10-PCS; CPT 59514; principal; 2025-02-03 14:30)
DX: O32.4XX0 Maternal care for high head at term, not applicable or unspecified (principal); Z3A.40 40 weeks gestation of pregnancy; Z37.0 Single live birth; O90.81 Anemia of the puerperium; D62 Acute posthemorrhagic anemia; G89.18 Other acute postprocedural pain
CPT/HCPCS: 01967; 01968; 36415; 64488; 74177; 76942; 85018; 85025; 86592; 86850; 86900; 86901; 99140; A4314; A9270; J0456; J0665; J0666; J1885; J2274; J2405; J2590; J2795; J3010; J7050; J7120; Q9967